=== PATIENT | male | born 1995 | race American Indian/Alaskan Native ===

== ENCOUNTER 2021-02-16 08:07 | Emergency (ER) | payer SELFPAY ==
[2021-02-16] MEDS ORDERED: LIDOCAINE (1%) 10 MG/1 ML VIAL 20 ML MDV INFILTRATI ONE (12:06)
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
[2021-02-16] MEDS ORDERED: NEOMY 3.5 MG/BACIT 400 UNITS/POLY B 5000 UNITS/GM OINT PACKET TP ONE (14:06)
[2021-02-16 14:30] VITALS: BP 116/66
== END 2021-02-16 14:28 | disposition home or self-care (01) ==
LOC: ED 08:07
DX: S01.511A Laceration without foreign body of lip, initial encounter (principal); Z79.899 Other long term (current) drug therapy; Y04.8XXA Assault by other bodily force, initial encounter; Y93.89 Activity, other specified; Y92.89 Other specified places as the place of occurrence of the external cause; Y99.8 Other external cause status
CPT/HCPCS: 40650; 70486; 99283; A6250

== ENCOUNTER 2021-02-25 06:56 | Emergency (ER) | payer SELFPAY ==
[2021-02-25 07:58] VITALS: BP 109/75
--- NOTE | 2021-02-25 09:47 | Emergency Department Report ---
Suture/Staple Removal - HPI Chief Complaint: Laceration/Recheck/Suture Stated Complaint: REMOVAL OF STITCHES Time Seen by Provider: 02/25/21 09:06 When Sutures or Amy Placed: 8-10 Days Ago Wound Location: Upper lip ED Review of Systems ROS: Stated complaint: REMOVAL OF STITCHES Other details as noted in HPI Comment: All other systems reviewed and negative Skin: other (sutures upper lip ) ED Past Medical Hx - Past Medical History Previous Medical History?: No - Surgical History Past Surgical History?: No - Social History Smoking Status: Unknown if ever smoked - Medications Home Medications: Home Medications Medication Instructions Recorded Confirmed Last Taken Type Acetaminophen/Codeine [Tylenol 1 tab PO Q6H PRN #12 tab 02/16/21 Unknown Rx /Codeine # 3 tab] Suture Removal Exam - Exam General: Vital signs noted. No distress. Alert and acting appropriately. Wound: Yes Tenderness (Mild ), No Pathologic Erythema, No Drainage, No Pus, No Wound Dehiscence Other Systems: All other systems reviewed and are unremarkable. ED Course Vital Signs 02/25/21 07:57 Temperature 98.5 F Pulse Rate 62 Respiratory 16 Rate Blood Pressure 109/75 O2 Sat by Pulse 100 Oximetry - Procedure Description Procedures done: Suture removal upper lip: All sutures removed. Wound appears to be healing well without any signs of infection. Patient tolerated well without any complication. Critical care attestation.: If time is entered above; I have spent that time in minutes in the direct care of this critically ill patient, excluding procedure time. ED Disposition Clinical Impression: Visit for suture removal Disposition: DC-01 TO HOME OR SELFCARE Is pt being admited?: No Does the pt Need Aspirin: No Condition: Stable Instructions: Wound Closure Removal, Care After Additional Instructions: Continue to keep clean with soap and water. You can continue applying thin layer of Neosporin after each cleaning. Recommend doing that for another 5 days. Follow-up as needed with your primary care doctor. Return to the ER if your symptoms changes or worsens in any way. Referrals: PRIMARY CARE, [Primary Care Provider] - 3-5 Days Time of Disposition: 09:47
== END 2021-02-25 09:53 | disposition home or self-care (01) ==
LOC: ED 06:56
DX: S01.511D Laceration without foreign body of lip, subsequent encounter (principal); Z48.02 Encounter for removal of sutures; Z79.899 Other long term (current) drug therapy; X58.XXXD Exposure to other specified factors, subsequent encounter